=== PATIENT | female | born 1970 | race Caucasian/White ===

== ENCOUNTER 2016-09-16 03:17 | Emergency (ER) | payer OTHER ==
[~2016-09-16 03:17] MED LIST: B12 PO; COUMADIN10 MG PO; COUMADIN5 M1 PO; D3 DOTS2000 UNIT PO; DICLOFENAC PO; EQL FISH OIL 1,1 CA1 PO; ESTER-C500 M1 PO; GABAPENTIN300 MG PO; LEXAPRO10 MG PO; LOVENOX120 MG/0.8 SQ; MAXALT10 MG PO; MULTIVITAMIN1 TAB PO; PHENERGAN12.5 MG/TA PO; PRISTIQ50 MG PO; RECLIPSEN1 TAB PO; ROBAXIN750 MG/TAB PO; VENTOLIN HFA18 GM IH; WELLBUTRIN PO; ZOFRAN ODT4 MG/UDTAB PO
[2016-09-16] MEDS ORDERED: XARELTO1 EACH (03:25)
[2016-09-16] MEDS ORDERED: NEURONTIN100 M1 (03:25)
[2016-09-16] MEDS ORDERED: LATUDA20 M1 (03:25)
[2016-09-16] MEDS ORDERED: TRAZODONE HCL5 GM (03:26)
[2016-09-16] MEDS ORDERED: VITAMIN D400 UNI3 (03:26)
[2016-09-16] MEDS ORDERED: ASPIRIN81 M1 PO (03:31)
[2016-09-16] MEDS ORDERED: NUDEXTA (03:33)
[2016-09-16] MEDS ORDERED: LEVOMILNACIPRAN (03:34)
[2016-09-16] MEDS ORDERED: ADDERALL 10 MG10 M2 PO (03:34)
[2016-09-16 03:54] LABS: BASO % 0.2 % (0-2); EOS % 1.6 % (0-7); EOSINOPHIL ABSOLUTE COUNT 0.2 tho/cmm (0.0-0.7); HCT-HEMATOCRIT 42.1 % (34.0-49.0); HGB-HEMOGLOBIN 14.4 gm/dl (12.0-15.5); IMMATURE GRANULOCYTES ABSOLUTE 0.01 tho/cmm (0-0.03); IMMATURE GRANULOCYTES PERCENT 0.1 % (0-0.3); LYMPH % 22.5 % (20-45); LYMPH ABSOLUTE COUNT 2.1 tho/cmm (0.8-4.5); MCH (MEAN CORPUSCULAR HGB) 30.2 pg (28.0-32.0); MCHC MEAN CORPUSCULAR HGB CONC 34.2 % (32.0-36.0); MCV (MEAN CELL VOLUME) 88.3 fl (82.0-96.0); MONO % 7.5 % (0-12); MONOCYTE ABSOLUTE COUNT 0.7 tho/cmm (0.0-1.2); NEUTROPHIL ABSOLUTE COUNT 6.3 tho/cmm (1.6-8.0); NEUTROPHIL-AUTOMATED 6.3 tho/cmm (1.6-8.0); NEUTROPHILS % 68.1 % (40-80); PLATELET COUNT 377 tho/cmm (150-450); RED BLOOD COUNT 4.77 mil/cmm (4.00-5.20); WHITE BLOOD COUNT 9.3 tho/cmm (4.0-10.0)
[2016-09-16 04:07] LABS: ANION GAP 12 mmol/L (0-20); BLOOD UREA NITROGEN 10 mg/dl (6-24); CALCIUM 9.3 mg/dl (8.5-10.5); CARBON DIOXIDE-VENOUS 25 mmol/L (22-32); CHLORIDE 105 mmol/l (96-110); GLUCOSE 113 mg/dL (70-110); POTASSIUM 3.8 mmol/L (3.7-5.1); SODIUM 138 mmol/L (135-145); eGFR VALUE FOR BLACK >90 mL/Min
[2016-09-16 04:10] LABS: PREGNANCY-SERUM NEGATIVE (NEGATIVE)
[2016-09-16 04:33] LABS: URINE BILIRUBIN NEGATIVE (NEG); URINE BLOOD LARGE (NEG); URINE GLUCOSE (UA) NEGATIVE (NEG); URINE KETONE MODERATE (NEG); URINE LEUKOCYTE ESTERASE NEGATIVE (NEG); URINE NITRITE NEGATIVE (NEG); URINE PROTEIN NEGATIVE (NEG)
[2016-09-16 04:37] LABS: URINE APPEARANCE CLEAR; URINE COLOR YELLOW
[2016-09-16 04:43] LABS: URINE RBC 0-2 /[HPF] (0-5); URINE WBC 0-1 /[HPF] (0-5)
[2016-09-16] MEDS ORDERED: PERCOCET 5-3251 EACH PO (07:36)
== END 2016-09-16 09:01 ==
LOC: EDMED 03:17
PROVIDERS: Physician Assistant
DX: N83.202 Unspecified ovarian cyst, left side (principal); F32.9 Major depressive disorder, single episode, unspecified; F41.9 Anxiety disorder, unspecified; Z86.73 Personal history of transient ischemic attack (TIA), and cerebral infarction without residual deficits; Z79.01 Long term (current) use of anticoagulants; Z88.8 Allergy status to other drugs, medicaments and biological substances
CPT/HCPCS: J2270; J2405; J7030; Q9967